=== PATIENT | male | born 1955 | race Caucasian/White ===

== ENCOUNTER 2017-11-08 16:47 | Emergency (ER) | payer MEDICARE ==
--- NOTE | 2017-11-08 19:32 | UC ---
Abdominal Pain Male HPI - HPI Summary HPI Summary: 62 year old male with history of celiac and smoking presents with difficulty swallowing. has not been able to keep any food down since yesterday. he does not feel sick, he has not had loose stools. he feels like food is getting stuck in his chest. even oatmeal and clear liqs sit in his chest. he was able to have strawberry milk without a problem. he has celiac's. he has never been told that he has GERD, Copeland's or esophageal stricture. he has had the sensation of fullness in the stomach, but he has never had the sensation of pain in the chest from blockage of food. He has lost about 25 - 30 lbs in the last 9 months and has not been trying. PCP Dr Deleon. GI unknown. [ End ] - History of Current Complaint Chief Complaint: UCGeneralIllness Stated Complaint: VOMITING Time Seen by Provider: 11/08/17 19:23 Hx Obtained From: Patient Onset/Duration: Gradual Onset Timing: Constant Severity Initially: Mild Severity Currently: Moderate Pain Intensity: 0 Radiates: No - Allergies/Home Medications Allergies/Adverse Reactions: Allergies Allergy/AdvReac Type Severity Reaction Status Date / Time gluten Allergy GI Upset Verified 11/08/17 18:25 orange Allergy Swelling Verified 11/08/17 18:25 Of Face,Lips,& Throat shellfish derived Allergy Eyes Verified 11/08/17 18:25 Itchy/Swollen/Red/Watery wheat Allergy GI Upset Verified 11/08/17 18:25 Home Medications: Home Medications Cyanocobalamin TAB* [Vitamin B12 TAB*] 500 mcg PO DAILY 11/08/17 [History Confirmed 11/08/17] Dexlansoprazole [Dexilant] 60 mg PO DAILY 11/08/17 [History Confirmed 11/08/17] Ferrous Sulfate TAB* 325 mg PO BID 11/08/17 [History Confirmed 11/08/17] Gabapentin CAP(*) [Neurontin 100 mg CAP(*)] 200 mg PO BID 11/08/17 [History Confirmed 11/08/17] Gabapentin CAP(*) [Neurontin 300 CAP(*)] 300 mg PO TID 11/08/17 [History Confirmed 11/08/17] HYDROcodone/ACETAMIN 5-325 MG* [Morris 5-325 TAB*] 1 tab PO Q4H PRN 11/08/17 [ History Confirmed 11/08/17] Propranolol TAB* [Inderal TAB*] 20 mg PO BID 11/08/17 [History Confirmed ] traMADol TAB* [Ultram*] 25 mg PO Q6HR PRN 11/08/17 [History Confirmed 11/08/17] PMH/Surg Hx/FS Hx/Imm Hx Previously Healthy: Yes GI/ History: Gastroesophageal Reflux - Surgical History Surgical History: Yes Surgery Procedure, Year, and Place: right hip replacement 2013. right hand repair 2002 & 2011 - Family History Known Family History: Negative: Respiratory Disease - Social History Lives: With Family Alcohol Use: Weekly Alcohol Amount: a couple of times a week he has a few mixed drinks Substance Use Type: Marijuana, Prescribed Smoking Status (MU): Light Every Day Tobacco Smoker Type: Cigarettes Amount Used/How Often: 1 pack per week (pt trying to quit) Cessation Counseling: Patient Advised to Stop Review of Systems Gastrointestinal: Abdominal Pain - epigastric, Nausea, Other Motor: Negative Neurovascular: Negative Musculoskeletal: Negative Neurological: Negative Psychological: Negative All Other Systems Reviewed And Are Negative: Yes Physical Exam Triage Information Reviewed: Yes Appearance: Well-Appearing, No Pain Distress, Well-Nourished Vital Signs: Initial Vital Signs Temp 98.8 F 11/08/17 18:15 Pulse 67 11/08/17 18:15 Resp 14 11/08/17 18:15 BP 171/94 11/08/17 18:15 Pulse Ox 99 11/08/17 18:15 Vital Signs Reviewed: Yes Eye Exam: Normal ENT Exam: Normal Dental Exam: Normal Neck exam: Normal Neck: Positive: 1 Respiratory Exam: Normal Cardiovascular Exam: Normal Abdomen Description: Positive: Soft, Other: - mild tenderness to palpation epigastric and lower sternal to palpation. Negative: CVA Tenderness (R), CVA Tenderness (L), Distended, Guarding Musculoskeletal Exam: Normal Neurological Exam: Normal Psychological Exam: Normal Skin Exam: Normal Diagnostics - Laboratory Diagnostic Studies Completed/Ordered: xray: reading by rads: IMPRESSION: DISTENDED AND MILDLY DILATED SMALL BOWEL LOOPS, CONCERNING FOR PARTIAL OR EARLY. OBSTRUCTION. RECOMMEND ATTENTION ON FOLLOW-UP IMAGING. IMPRESSION: NO ACTIVE CARDIOPULMONARY DISEASE. Abd Pain Male Course/Dx - Course Course Of Treatment: Concern with dysphagia / weight loss/ smoking for possible gastric / esophageal cancer/ stricture. Xray shows possible obstruction. Will advise ED for further evaluation . to gratz ed -- spoke with Dr Steinberg at ED who will agree for care. he declined ambulance. aware of risks of delayed care like SBO/sepsis/ and he states he will take cab directly to ed as his insurance will not pay for ambulance. - Differential Dx/Clinical Impression Differential Diagnosis/HQI/PQRI: Abdominal Aortic Aneurysm, Constipation, Ischemic Bowel, Peptic Ulcer Disease, Other - hiatal hernia/ esophageal cancer Provider Diagnoses: Epigastric pain / vomiting/ dysphagia / bowel obstruction Discharge - Sign-Out/Discharge Documenting (check all that apply): Discharge - Discharge Plan Condition: Guarded Disposition: [facility] OF CARE FAC Patient Education Materials: Bowel Obstruction (ED) Referrals: Pancho DOUGLASS,Taisha [Primary Care Provider] - 1 Day (Also call your GI for follow up as well ) Additional Instructions: Go DIRECTLY TO THE EMERGENCY ROOM FOR POSSIBLE BOWEL OBSTRUCTION - Billing Disposition and Condition Condition: GUARDED Disposition: EMTALA
--- NOTE | 2017-11-08 20:15 | RAD ---
HISTORY: Epigastric pain COMPARISONS: None VIEWS: Frontal supine and upright views of the abdomen. FINDINGS: BOWEL: There is distended and mildly dilated small bowel within the midabdomen. There is large amount stool within the proximal colon and rectosigmoid colon. CALCULI: There are no abnormal calculi. BONES AND SOFT TISSUES: The patient is status post right hip] plasty. Degenerative changes are noted. OTHER FINDINGS: The lung bases are clear. There is no subphrenic gas. IMPRESSION: DISTENDED AND MILDLY DILATED SMALL BOWEL LOOPS, CONCERNING FOR PARTIAL OR EARLY OBSTRUCTION. RECOMMEND ATTENTION ON FOLLOW-UP IMAGING.
--- NOTE | 2017-11-08 20:16 | RAD ---
HISTORY: Epigastric pain COMPARISONS: None VIEWS: 7: Frontal dual-energy and lateral views of the chest. FINDINGS: CARDIOMEDIASTINAL SILHOUETTE: The cardiomediastinal silhouette is normal. MAURI: The mauri are normal. PLEURA: The costophrenic angles are sharp. No pleural abnormalities are noted. LUNG PARENCHYMA: The lungs are clear. ABDOMEN: The upper abdomen is clear. There is no subphrenic gas. BONES AND SOFT TISSUES: Degenerative changes are noted along the spine. OTHER: None. IMPRESSION: NO ACTIVE CARDIOPULMONARY DISEASE.
[2017-11-08 20:38] VITALS: BP 156/76
== END 2017-11-08 20:40 | disposition home or self-care (01) ==
LOC: UCCORT 16:47
DX: R10.13 Epigastric pain (principal); R11.11 Vomiting without nausea; R13.10 Dysphagia, unspecified; K56.609 Unspecified intestinal obstruction, unspecified as to partial versus complete obstruction; K21.9 Gastro-esophageal reflux disease without esophagitis; K90.0 Celiac disease; F17.210 Nicotine dependence, cigarettes, uncomplicated
CPT/HCPCS: 71046; 74019; 99212; G0463